=== PATIENT | female | born 1990 | race Caucasian/White ===

== ENCOUNTER 2022-07-30 22:03 | Inpatient (IN) | payer MEDICAID ==
[~2022-07-30] VITALS: Ht 154.9 cm; Wt 51.6 kg
[2022-07-30 23:15] LABS: Basophils # (auto) 0 10 ^3/uL (0-0.2); Basophils % (auto) 0.2 % (0.0-2.0); Eosinophils # (auto) 0 10 ^3/uL (0-0.8); Hematocrit 50.1 % (36.0-46.0); Lymphocytes # (auto) 0.9 10 ^3/uL (0.4-5.4); Lymphocytes % (auto) 3.7 % (10.0-50.0); Mean Corpuscular Hemoglobin 29.9 pg (28.0-32.0); Mean Corpuscular Hgb Conc. 31.8 g/dL (32.0-36.0); Mean Corpuscular Volume 93.8 fL (80.0-100.0); Monocytes # (auto) 1.5 10 ^3/uL (0-1.3); Monocytes % (auto) 6.2 % (0.0-12.0); Neutrophils # (auto) 21.8 10 ^3/uL (1.6-8.6); Neutrophils % (auto) 89.9 % (37.0-80.0); Red Blood Cells 5.34 10^6/uL (4.0-5.20); Red Cell Distribution Width 14.4 % (11.8-14.3); White Blood Cell 24.3 10^3/uL (4.4-10.8)
[2022-07-30 23:32] LABS: Albumin 5.5 g/dL (3.4-5.0); BUN/Creatinine Ratio 11.6; Calcium 10.2 mg/dL (8.5-10.1)
[2022-07-30 23:35] LABS: Bilirubin, Total 0.7 mg/dL (0.2-1.0); Total Protein 9.4 g/dL (6.4-8.2)
[2022-07-31] MEDS ORDERED: ONDANSETRON HCL 4 MG/2 ML VIAL IV ONE (02:45)
[2022-07-31] MEDS ORDERED: SODIUM CHLORIDE 0.9% 1,000 ML IV ONE ×2 (03:30→04:45)
[2022-07-31 03:33] LABS: Urine Blood 3+ /uL (Negative); Urine Specific Gravity 1.014 (1.001-1.035)
[2022-07-31] MEDS ORDERED: SODIUM BICARBONATE 8.4 % INJ 50ML VIAL IV ONE ×2 (03:45→05:42)
[2022-07-31] MEDS ORDERED: cefTRIAXone 1GM/50ML D5W 50 ML IV ONE (03:45)
[2022-07-31] MEDS ORDERED: NITROGLYCERIN 0.4 MG SL TAB SL PRN (05:30)
[2022-07-31] MEDS ORDERED: ACETAMINOPHEN 325 MG TAB PO PRN (05:30)
[2022-07-31] MEDS ORDERED: ONDANSETRON HCL 4 MG/2 ML VIAL IV PRN (05:30)
[2022-07-31] MEDS ORDERED: MORPHINE SULFATE INJ 2 MG/ml SYRG IV PRN (05:30)
[2022-07-31] MEDS ORDERED: SODIUM BICARBONATE 50ML VIAL 50 ML in SOD CHL 0.45% 1,000 ML IV ONE (05:30)
[2022-07-31] MEDS: PANTOPRAZOLE 40 MG TAB PO SCH (10:05)
[2022-08-01] MEDS: INSULIN LANTUS (GLARGINE) 1 /0.01ml (100units/ml) SC SCH ×3 (01:13→21:49)
[2022-08-01] MEDS: TEMAZEPAM 15 MG CAP PO PRN ×2 (01:19→21:49)
[2022-08-01 07:07] LABS: Albumin 4.2 g/dL (3.4-5.0); Calcium 9.5 mg/dL (8.5-10.1); Potassium 3.2 mmol/L (3.5-5.1)
[2022-08-01 07:10] LABS: BUN/Creatinine Ratio 15.5; Bilirubin, Total 0.8 mg/dL (0.2-1.0); Total Protein 7.5 g/dL (6.4-8.2)
[2022-08-01 07:12] LABS: Basophils # (auto) 0 10 ^3/uL (0-0.2); Basophils % (auto) 0.4 % (0.0-2.0); Eosinophils # (auto) 0.1 10 ^3/uL (0-0.8); Eosinophils % (auto) 0.7 % (0.0-7.0); Hematocrit 41.9 % (36.0-46.0); Hemoglobin 14.1 g/dL (12.2-16.2); Lymphocytes # (auto) 2.4 10 ^3/uL (0.4-5.4); Lymphocytes % (auto) 21.6 % (10.0-50.0); Mean Corpuscular Hemoglobin 30.6 pg (28.0-32.0); Mean Corpuscular Hgb Conc. 33.7 g/dL (32.0-36.0); Mean Corpuscular Volume 90.6 fL (80.0-100.0); Monocytes # (auto) 1.1 10 ^3/uL (0-1.3); Monocytes % (auto) 9.5 % (0.0-12.0); Neutrophils # (auto) 7.5 10 ^3/uL (1.6-8.6); Neutrophils % (auto) 67.8 % (37.0-80.0); Red Blood Cells 4.62 10^6/uL (4.0-5.20); Red Cell Distribution Width 13.7 % (11.8-14.3); White Blood Cell 11.1 10^3/uL (4.4-10.8)
[2022-08-01] MEDS: PANTOPRAZOLE 40 MG TAB PO SCH (10:22)
[2022-08-01 22:00] VITALS: BP 112/74
[2022-08-02 05:00] VITALS: BP 104/75
[2022-08-02 08:00] VITALS: BP 109/76
[2022-08-02 09:00] VITALS: BP 109/76
[2022-08-02] MEDS: INSULIN LANTUS (GLARGINE) 1 /0.01ml (100units/ml) SC SCH (10:00)
[2022-08-02] MEDS: PANTOPRAZOLE 40 MG TAB PO SCH (10:53)
[2022-08-02] MEDS ORDERED: MULT-1026 PO (11:53)
[2022-08-02] MEDS ORDERED: PREN-96 PO (11:53)
[2022-08-02] MEDS ORDERED: LANCKIT12 XX (12:25)
[2022-08-02] MEDS ORDERED: BLOO1KIT59 XX (12:25)
[2022-08-02 13:00] VITALS: BP 119/80
[2022-08-02 13:32] VITALS: BP 109/76
== END 2022-08-02 14:25 | disposition home or self-care (01) | DRG 469 ==
LOC: ER 22:03 → TELE 07-31 05:28 → TELE-EAST 08-01 18:22
PROVIDERS: ADMIT Nurse Practitioner; ATTEND Internal Medicine
DX: N17.9 Acute kidney failure, unspecified (principal); E87.29 Other acidosis; E86.0 Dehydration; D72.829 Elevated white blood cell count, unspecified; R00.0 Tachycardia, unspecified; Z20.822 Contact with and (suspected) exposure to COVID-19
CPT/HCPCS: 36415; 36600; 71045; 74176; 80053; 81003; 82805; 82962; 83605; 83690; 84443; 84484; 85025; 87426; 87804; 96374; G0378; J0696; J1815; J2405